=== PATIENT | male | born 1965 | race Caucasian/White ===

== ENCOUNTER 2023-08-16 09:49 | Observation (INO) | payer OTHER ==
[2023-08-16 10:00] VITALS: RESP 18; BMI 44.0
[2023-08-16 11:57] LABS: BASO % 0.4 % (0-2.0); EOS % 1.4 % (0-4.5); HEMATOCRIT 39.3 % (35.4-49); HEMOGLOBIN 12.3 GM/dL (11.7-16.9); MCH 24.9 pg (25.7-33.7); MCHC 31.3 g/dl (32.0-35.9); MEAN CELL VOLUME 79.6 fl (80-96); MEAN PLT VOLUME 8.6 fl (7.5-11.1); MONO % 7.2 % (3.8-10.2); PLATELET COUNT 224 10^3/uL (134-434); RBC 4.93 M/mm3 (4.00-5.60); RDW 17.5 % (11.9-15.9)
[2023-08-16 12:01] LABS: INR 1.07 (0.83-1.09); PROTHROMBIN TIME (PATIENT) 12.1 SEC (9.7-13.0)
[2023-08-16 12:04] LABS: ACTIVATED PTT 29.8 SECONDS (25.2-36.5)
[2023-08-16 12:11] LABS: POTASSIUM 4.3 mmol/L (3.5-5.1)
[2023-08-16 12:14] LABS: CALCIUM 9.1 mg/dL (8.5-10.1)
[2023-08-16 12:15] LABS: ALBUMIN 3.4 g/dl (3.4-5.0); BLOOD UREA NITROGEN 17.5 mg/dL (7-18)
[2023-08-16 12:20] LABS: BILIRUBIN,TOTAL 0.5 mg/dL (0.2-1); TOT PROT 6.9 g/dl (6.4-8.2)
[2023-08-16] MEDS: MEROPENEM 1 GM in DEXTROSE 5%-WATER 100 ML IVPB SCH (14:54)
[2023-08-16] MEDS: DEXTROSE 5%-0.45% SALINE 1,000 ML IV SCH (18:15)
[2023-08-16] MEDS: ROSUVASTATIN CA 20 MG TABLET PO SCH (21:43)
[2023-08-16] MEDS: LOSARTAN 50MG/HCTZ 12.5MG 1 TAB PO SCH (21:43)
[2023-08-16 22:23] LABS: EPI CELLS 11 /uL (0-25.1); HYALINE CASTS 1 /uL (0-3.1); PH,URINE 5.5 (5.0-8.0); URINE APPEARANCE CLEAR; URINE BILIRUBIN 1+ (NEGATIVE); URINE COLOR ORANGE; URINE GLUCOSE (UA) NEGATIVE (NEGATIVE); URINE KETONE NEGATIVE (NEGATIVE); URINE LEUK ESTERASE 2+ (NEGATIVE); URINE NITRITE POSITIVE (NEGATIVE); URINE PROTEIN 1+ (NEGATIVE); URINE RBC 55 /uL (0-23.9); URINE WBC 455 /uL (0-25.8)
[2023-08-16 23:17] LABS: URINE BACTERIA 1.8 /uL (0-1359)
[2023-08-17 10:05] LABS: BASO % 0.8 % (0-2.0); EOS % 1.9 % (0-4.5); HEMATOCRIT 41.4 % (35.4-49); HEMOGLOBIN 13.3 GM/dL (11.7-16.9); LYMPH % 20.3 % (8-40); MCH 25.4 pg (25.7-33.7); MCHC 32.2 g/dl (32.0-35.9); MEAN CELL VOLUME 78.9 fl (80-96); MEAN PLT VOLUME 9.3 fl (7.5-11.1); MONO % 7.6 % (3.8-10.2); NEUT % 69.4 % (42.8-82.8); PLATELET COUNT 252 10^3/uL (134-434); RBC 5.25 M/mm3 (4.00-5.60); RDW 17.6 % (11.9-15.9); WHITE BLOOD COUNT 9.6 K/mm3 (4.0-10.0)
[2023-08-17 10:38] LABS: ALBUMIN 3.7 g/dl (3.4-5.0); BLOOD UREA NITROGEN 16.8 mg/dL (7-18)
[2023-08-17 10:40] LABS: CALCIUM 9.4 mg/dL (8.5-10.1)
[2023-08-17 10:42] LABS: TOT PROT 7.5 g/dl (6.4-8.2)
[2023-08-17 10:50] LABS: BILIRUBIN,TOTAL 0.5 mg/dL (0.2-1)
[2023-08-17 13:43] VITALS: BP 124/76; PULSE 76; TEMP 98.2
== END 2023-08-17 15:47 | disposition home or self-care (01) ==
LOC: JER 09:49 → INTOOBSV 12:36 → UNDOADMOB 12:36 → JERBED 12:36 → J5S 14:37 → JERBED 08-17 10:47
PROVIDERS: ADMIT Internal Medicine; ATTEND Internal Medicine
PROC: 02HV33Z Insertion of Infusion Device into Superior Vena Cava, Percutaneous Approach (ICD-10-PCS; principal; 2023-08-17)
PROC: B518ZZA Fluoroscopy of Superior Vena Cava, Guidance (ICD-10-PCS; 2023-08-17)
PROC: 3E0337Z Introduction of Electrolytic and Water Balance Substance into Peripheral Vein, Percutaneous Approach (ICD-10-PCS; 2023-08-17)
DX: Z45.2 Encounter for adjustment and management of vascular access device (principal); N41.9 Inflammatory disease of prostate, unspecified; N40.0 Benign prostatic hyperplasia without lower urinary tract symptoms; I10 Essential (primary) hypertension; Z87.440 Personal history of urinary (tract) infections; E66.01 Morbid (severe) obesity due to excess calories; Z68.41 Body mass index [BMI] 40.0-44.9, adult
CPT/HCPCS: 36415; 36569; 74178-TC; 76872-TC; 80053; 81003; 85025; 85610; 85730; 86850; 86900; 86901; 87086; 93005; 93010; 93970-TC; 99285-25; G0378; Q9967

== ENCOUNTER 2023-08-18 12:30 | Day surgery (SDC) | payer OTHER ==
[2023-08-18] MEDS: ERTAPENEM SODIUM 1 GM in SODIUM CHLORIDE 50 ML IVPB ONE (12:47)
[2023-08-18 13:32] VITALS: BP 118/70; PULSE 79; RESP 18; TEMP 98.9
== END 2023-08-18 13:50 | disposition home or self-care (01) ==
LOC: FINFUSION 12:30 → FM/S 12:31 → FINFUSION 13:50
PROVIDERS: ATTEND Internal Medicine Infectious Disease
DX: N39.0 Urinary tract infection, site not specified (principal); N41.9 Inflammatory disease of prostate, unspecified
CPT/HCPCS: 96365

== ENCOUNTER 2023-08-19 12:22 | Day surgery (SDC) | payer OTHER ==
[2023-08-19] MEDS: ERTAPENEM SODIUM 1 GM in SODIUM CHLORIDE 50 ML IVPB ONE (13:09)
[2023-08-19 18:36] VITALS: BP 117/86; PULSE 80; RESP 18; TEMP 98.1
== END 2023-08-19 16:39 | disposition home or self-care (01) ==
LOC: FINFUSION 12:22 → FM/S 12:24 → FINFUSION 16:39
PROVIDERS: ATTEND Internal Medicine Infectious Disease
DX: N39.0 Urinary tract infection, site not specified (principal); N41.9 Inflammatory disease of prostate, unspecified
CPT/HCPCS: 96365

== ENCOUNTER 2023-08-20 11:33 | Day surgery (SDC) | payer OTHER ==
[2023-08-20] MEDS: ERTAPENEM SODIUM 1 GM in SODIUM CHLORIDE 50 ML IVPB ONE (12:01)
[2023-08-20 12:26] VITALS: BP 124/75; PULSE 80; RESP 17; TEMP 97.8
== END 2023-08-20 12:39 | disposition home or self-care (01) ==
LOC: FINFUSION 11:33 → FM/S 11:34 → FINFUSION 12:39
PROVIDERS: ATTEND Internal Medicine Infectious Disease
DX: N41.8 Other inflammatory diseases of prostate (principal); N39.0 Urinary tract infection, site not specified
CPT/HCPCS: 96365

== ENCOUNTER 2023-08-21 11:01 | Day surgery (SDC) | payer OTHER ==
[2023-08-21] MEDS: ERTAPENEM SODIUM 1 GM in SODIUM CHLORIDE 50 ML IVPB SCH (11:25)
[2023-08-21 12:00] VITALS: BP 113/71; PULSE 71; RESP 15; TEMP 98.3
== END 2023-08-21 12:04 | disposition home or self-care (01) ==
LOC: FINFUSION 11:01 → FM/S 11:01 → FINFUSION 12:04
PROVIDERS: ATTEND Internal Medicine Infectious Disease
DX: N41.8 Other inflammatory diseases of prostate (principal); N39.0 Urinary tract infection, site not specified
CPT/HCPCS: 96365

== ENCOUNTER 2023-08-22 11:03 | Day surgery (SDC) | payer OTHER ==
[2023-08-22] MEDS: ERTAPENEM SODIUM 1 GM in SODIUM CHLORIDE 50 ML IVPB ONE (11:30)
[2023-08-22 12:13] VITALS: BP 130/64; PULSE 80; RESP 16; TEMP 97.7
== END 2023-08-22 12:13 | disposition home or self-care (01) ==
LOC: FINFUSION 11:03 → FM/S 11:03 → FINFUSION 12:13
PROVIDERS: ATTEND Internal Medicine Infectious Disease
DX: N41.9 Inflammatory disease of prostate, unspecified (principal); N39.0 Urinary tract infection, site not specified
CPT/HCPCS: 96365

== ENCOUNTER 2023-08-23 10:49 | Day surgery (SDC) | payer OTHER ==
[2023-08-23] MEDS: ERTAPENEM SODIUM 1 GM in SODIUM CHLORIDE 50 ML IVPB ONE (11:09)
[2023-08-23 12:26] VITALS: BP 120/73; PULSE 78; RESP 18; TEMP 98.1
== END 2023-08-23 12:27 | disposition home or self-care (01) ==
LOC: FM/S 10:49 → FINFUSION 10:49
PROVIDERS: ATTEND Internal Medicine Infectious Disease
DX: N41.9 Inflammatory disease of prostate, unspecified (principal); N39.0 Urinary tract infection, site not specified
CPT/HCPCS: 96365

== ENCOUNTER 2023-08-24 10:51 | Day surgery (SDC) | payer OTHER ==
[2023-08-24] MEDS: ERTAPENEM SODIUM 1 GM in SODIUM CHLORIDE 50 ML IVPB ONE (11:06)
[2023-08-24 12:02] VITALS: BP 114/85; PULSE 82; RESP 16; TEMP 98.9
== END 2023-08-24 12:02 | disposition home or self-care (01) ==
LOC: FM/S 10:51 → FINFUSION 10:51
PROVIDERS: ATTEND Internal Medicine Infectious Disease
DX: N41.9 Inflammatory disease of prostate, unspecified (principal); N39.0 Urinary tract infection, site not specified
CPT/HCPCS: 96365

== ENCOUNTER 2023-08-25 10:58 | Day surgery (SDC) | payer OTHER ==
[2023-08-25] MEDS: ERTAPENEM SODIUM 1 GM in SODIUM CHLORIDE 50 ML IVPB ONE (11:26)
[2023-08-25 14:03] VITALS: RESP 18; TEMP 98.6
[2023-08-25 14:04] VITALS: BP 115/73; PULSE 75
== END 2023-08-25 12:10 | disposition home or self-care (01) ==
LOC: FINFUSION 10:58 → FM/S 10:59 → FINFUSION 12:10
PROVIDERS: ATTEND Internal Medicine Infectious Disease
DX: N41.9 Inflammatory disease of prostate, unspecified (principal); N39.0 Urinary tract infection, site not specified
CPT/HCPCS: 96365

== ENCOUNTER 2023-08-26 11:03 | Day surgery (SDC) | payer OTHER ==
[2023-08-26 11:23] VITALS: BP 128/72; TEMP 98
[2023-08-26] MEDS: ERTAPENEM SODIUM 1 GM in SODIUM CHLORIDE 50 ML IVPB ONE (11:29)
[2023-08-26 12:05] VITALS: PULSE 73; RESP 18
== END 2023-08-26 12:06 | disposition home or self-care (01) ==
LOC: FINFUSION 11:03 → FM/S 11:05 → FINFUSION 12:06
PROVIDERS: ATTEND Internal Medicine Infectious Disease
DX: N41.9 Inflammatory disease of prostate, unspecified (principal); N39.0 Urinary tract infection, site not specified
CPT/HCPCS: 96365

== ENCOUNTER 2023-08-27 10:52 | Day surgery (SDC) | payer OTHER ==
[2023-08-27] MEDS: ERTAPENEM SODIUM 1 GM in SODIUM CHLORIDE 50 ML IVPB ONE (11:35)
[2023-08-27 13:52] VITALS: BP 131/72; PULSE 72; RESP 18; TEMP 98.2
== END 2023-08-27 13:37 | disposition home or self-care (01) ==
LOC: FINFUSION 10:52 → FM/S 10:53 → FINFUSION 13:37
PROVIDERS: ATTEND Internal Medicine Infectious Disease
DX: N41.9 Inflammatory disease of prostate, unspecified (principal); N39.0 Urinary tract infection, site not specified
CPT/HCPCS: 96365